=== PATIENT | male | born 1955 | race Caucasian/White ===

== ENCOUNTER 2017-01-11 23:11 | Inpatient (IN) | payer BC ==
[2017-01-11] MEDS ORDERED: MORPHINE SULFATE 10 MG/ML INJ IV ONE (23:35)
[2017-01-11] MEDS ORDERED: ONDANSETRON HCL INJ/PF 4 MG/2 ML SDV IV ONE (23:36)
[2017-01-11] MEDS ORDERED: NORMAL SALINE 1000 ML 1,000 ML IV ONE (23:38)
--- NOTE | 2017-01-11 23:38 | ER Document Report ---
ED General - General Chief Complaint: Abdominal Pain Stated Complaint: SEVERE ABDOMINAL PAIN Time seen by provider: 23:36 Notes: Patient is a 61-year-old male that comes emergency department with chief complaint of severe abdominal pain that began prior to arrival, pain is in the mid to upper abdomen, he denies nausea or vomiting, denies any radiation to his back or chest. He states he briefly had this yesterday but it resolved when he ate food, he states he tried eating but it did not help at all. He had a normal bowel movement in the past 24 hours. Past medical history of Debra-en-Y gastric bypass, hemicolectomy secondary to colon mass, appendectomy, type II diabetes insulin-dependent, hyperlipidemia. He denies any cardiac or pulmonary history. He tried taking Vicodin before coming in. TRAVEL OUTSIDE OF THE [place] IN LAST 30 DAYS: No - Related Data Allergies/Adverse Reactions: No Known Allergies Allergy (Unverified 01/11/17 23:15) Past Medical History - General Information source: Patient - Social History Smoking Status: Never Smoker Frequency of alcohol use: None Drug Abuse: None Lives with: Family Family History: Reviewed & Not Pertinent Patient has suicidal ideation: No Patient has homicidal ideation: No - Past Medical History Cardiac Medical History: Reports: Hx Hypercholesterolemia Endocrine Medical History: Reports: Hx Diabetes Mellitus Type 2 Renal/ Medical History: Denies: Hx Peritoneal Dialysis Past Surgical History: Reports: Hx Appendectomy, Hx Bowel Surgery - Debra-en-Y, partial colectomy - Immunizations Immunizations up to date: Yes Hx Diphtheria, Pertussis, Tetanus Vaccination: Yes Review of Systems - Review of Systems Constitutional: No symptoms reported EENT: No symptoms reported Cardiovascular: No symptoms reported Respiratory: No symptoms reported Gastrointestinal: See HPI Genitourinary: No symptoms reported Male Genitourinary: No symptoms reported Musculoskeletal: No symptoms reported Skin: No symptoms reported Hematologic/Lymphatic: No symptoms reported Neurological/Psychological: No symptoms reported Physical Exam - Vital signs Vitals: Temp Pulse Resp BP Pulse Ox 97.8 F 58 L 18 182/85 H 98 01/11/17 23:15 01/11/17 23:15 01/11/17 23:15 01/11/17 23:15 01/11/17 23:15 Interpretation: Normal - General General appearance: Appears well, Alert, Anxious In distress: Severe - Patient appears to be in a large amount of pain, he is pale and slightly diaphoretic - HEENT Head: Normocephalic, Atraumatic Eyes: Normal Conjunctiva: Normal Extraocular movements intact: Yes Eyelashes: Normal Pupils: PERRL Mucous membranes: Normal Pharynx: Normal Neck: Normal - Respiratory Respiratory status: No respiratory distress Chest status: Nontender Breath sounds: Normal. No: Decreased air movement, Wheezing Chest palpation: Normal - Cardiovascular Rhythm: Regular. No: Tachycardia Heart sounds: Normal auscultation, S1 appreciated, S2 appreciated Murmur: No - Abdominal Inspection: Normal Distension: No distension Bowel sounds: Normal Tenderness: Tender - Tender with guarding in the epigastric and right upper quadrant areas, lower abdomen is benign, Gregory's sign, Guarding - Back Back: Normal, Nontender. No: Tender - Extremities General upper extremity: Normal inspection, Nontender, Normal color, Normal ROM , Normal temperature General lower extremity: Normal inspection, Nontender, Normal color, Normal ROM , Normal temperature, Normal weight bearing. No: Taras's sign - Neurological Neuro grossly intact: Yes Cognition: Normal Orientation: AAOx4 [place] Coma Scale Eye Opening: Spontaneous [place] Coma Scale Verbal: Oriented [place] Coma Scale Motor: Obeys Commands Marija Coma Scale Total: 15 Speech: Normal Motor strength normal: LUE, RUE, LLE, RLE Sensory: Normal - Psychological Associated symptoms: Agitated - Skin Skin Temperature: Warm Skin Moisture: Diaphoretic Skin Color: Pale Course - Re-evaluation Re-evalutation: Patient initially pale, slightly diaphoretic, has guarding in the epigastric and right upper quadrant areas. Because he was tender acute abdominal series was performed pending labs, no free air, after morphine patient still appears very uncomfortable, given fentanyl, after this patient's pain almost completely resolved. He is much more calm and relaxed. Not hypotensive, not tachycardic. No fever. CBC unremarkable, chemistry concerning with very elevated ALT greater than AST, elevated alkaline phosphatase and both direct and indirect bilirubin. Lipase not significantly elevated. Ultrasound performed, no cholecystitis evidence, no ductal dilatation, no abnormalities. Discussed with Dr. Crum, recommends surgical consultation at this time. Discussed with surgery communications systems engineer, Dr. Sapp, recommends continuing IV fluids, recommends nothing by mouth, recommends antibiotics pending evaluation. 01/12/17 On reevaluation patient is comfortable, no current complaints 01/12/17 Patient is now again in pain, requesting pain medication, giving fentanyl because he responded to this so well earlier 01/12/17 06:45 Patient was evaluated by surgery at bedside, Dr. Sapp will admit the patient. - Vital Signs Vital signs: Temp Pulse Resp BP Pulse Ox 97.8 F 58 L 23 H 141/73 H 95 01/11/17 23:15 01/11/17 23:15 01/12/17 06:16 01/12/17 06:16 01/12/17 06:16 - Laboratory Result Diagrams: 01/11/17 23:41 01/11/17 23:41 Laboratory results interpreted by me: 01/11/17 01/11/17 01/12/17 23:41 23:41 01:50 RBC 5.69 H Seg Neutrophils % 79.0 H BUN 21 H Glucose 200 H Calcium 10.3 H Total Bilirubin 2.8 H Direct Bilirubin 0.6 H AST 747 H ALT 825 H Alkaline Phosphatase 195 H Lipase 311.6 H Urine Glucose (UA) >=500 H Urine Ketones TRACE H Discharge - Discharge Clinical Impression: Epigastric pain, Right upper quadrant pain, LFT elevation, Elevated bilirubin, Elevated alkaline phosphatase level Condition: Stable Disposition: ADMITTED INPATIENT Admitting Provider: Surgicalist Unit Admitted: Surgical Floor Referrals: LUBA LAUREN MD [Primary Care Provider] - Follow up as needed
--- NOTE | 2017-01-11 23:38 | EKG REPORT ---
SEVERITY:- ABNORMAL ECG - SINUS RHYTHM ABNRM R PROG, CONSIDER ASMI OR LEAD PLACEMENT : Confirmed by: Alvarez Green 11-Jan-2017 23:36:52
[2017-01-11 23:57] LABS: ABSOLUTE MONOCYTES (AUTO) 0.4 10^3/uL (0.1-1.4); ABSOLUTE NEUT (AUTO) 5.7 10^3/uL (1.7-8.2); BASOPHILS % (AUTO) 0.3 % (0-2); EOSINOPHILS % (AUTO) 0.4 % (0-6); HEMATOCRIT 47.9 % (37.9-51.0); HEMOGLOBIN 16.2 g/dL (13.5-17.0); HGB HCT DIFFERENCE 0.7; LYMPHOCYTES % (AUTO) 14.2 % (13-45); MEAN CORPUSCULAR HEMOGLOBIN 28.6 pg (27.0-33.4); MEAN CORPUSCULAR HGB CONC 33.9 g/dL (32.0-36.0); MEAN CORPUSCULAR VOLUME 84 fl (80-97); MONOCYTES % (AUTO) 6.1 % (3-13); RED BLOOD COUNT 5.69 10^6/uL (4.35-5.55); RED CELL DISTRIBUTION WIDTH 13.9 % (11.5-14.0); WHITE BLOOD COUNT 7.2 10^3/uL (4.0-10.5)
[2017-01-11] MEDS ORDERED: FENTANYL CITRATE INJ/PF 100 MCG/2 ML AMPUL IV ONE (23:58)
[2017-01-12 00:14] LABS: ALANINE AMINOTRANSFERASE 825 U/L (21-72); ALBUMIN 4.9 g/dL (3.5-5.0); ALKALINE PHOSPHATASE 195 U/L (38-126); ANION GAP 16 (5-19); ASPARTATE AMINO TRANSFERASE 747 U/L (17-59); BILIRUBIN,DIRECT 0.6 mg/dL (0.0-0.3); BILIRUBIN,TOTAL 2.8 mg/dL (0.2-1.3); BLOOD UREA NITROGEN 21 mg/dL (7-20); CALCIUM 10.3 mg/dL (8.4-10.2); CARBON DIOXIDE 25 mmol/L (22-30); CHLORIDE 100 mmol/L (98-107); CREATINE KINASE 96 U/L (55-170); CREATININE RESULT 1.09 mg/dL (0.52-1.25); GLUCOSE 200 mg/dL (75-110); LIPASE 311.6 U/L (23-300); POTASSIUM 4.2 mmol/L (3.6-5.0); SODIUM 140.6 mmol/L (137-145); TOTAL PROTEIN 8.1 g/dL (6.3-8.2)
[2017-01-12 00:26] LABS: CREATINE KINASE MB 0.72 ng/mL (<4.55)
[2017-01-12 00:31] LABS: TROPONIN I < 0.012 ng/mL
[2017-01-12 02:18] LABS: APPEARANCE,URINE CLEAR; BILIRUBIN,URINE NEGATIVE (NEGATIVE); GLUCOSE, URINE >=500 mg/dL (NEGATIVE); KETONES,URINE TRACE mg/dL (NEGATIVE); LEUKOCYTE ESTERASE,URINE NEGATIVE (NEGATIVE); NITRITE,URINE NEGATIVE (NEGATIVE); PROTEIN,URINE NEGATIVE (NEGATIVE); URINE SPECIFIC GRAVITY 1.024; UROBILINOGEN,URINE NEGATIVE mg/dL (<2.0)
[2017-01-12] MEDS ORDERED: NORMAL SALINE 1000 ML 1,000 ML IV PRN (02:55)
[2017-01-12] MEDS ORDERED: AMPICILLIN SOD/SULBACTAM 3 GM VIAL IV ONE (02:55)
[2017-01-12] MEDS ORDERED: FENTANYL CITRATE INJ/PF 100 MCG/2 ML AMPUL IV ONE (04:01)
[2017-01-12] MEDS ORDERED: NORMAL SALINE 1000 ML 1,000 ML IV ONE (06:41)
--- NOTE | 2017-01-12 06:55 | PDOC H&P ---
History of Present Illness Admission Date/PCP: LUBA LAUREN MD History of Present Illness: MICHELLE PANTOJA is a 61 year old male presents to the emergency department by ground rescue complaining of acute onset abdominal pain. First episode was 48 hours ago, epigastric associated with nausea but no vomiting. The symptoms improved than last night after eating a meal at 9:30, the pain returned. The location was the same.. Last bowel movement yesterday, normal. Patient denies previous episodes of. Still has his gallbladder ; he denies history of pancreatitis, hepatitis, or alcohol use. Patient was seen in the emergency department complaining of abdominal pain, and was found to be tachycardic. He received IV fluids, intravenous antibiotics and pain medication. All lateral symptoms unremarkable. Surgery was consulted, the patient was evaluated, and advised admission. Past Medical History Cardiac Medical History: Reports: Hyperlipidema Endocrine Medical History: Reports: Diabetes Mellitus Type 2 Past Surgical History Past Surgical History: Reports: Appendectomy, Gastric Bypass Surgery - Debra-en-Y , January 05, 2007, [place], [place] with successful weight loss., Other - 1. 1. Orthopedic repair left foot 1976 2. Fractures repaired with joy Social History Lives with: Family Smoking Status: Never Smoker Past Social History Note: He denies history of pancreatitis; he does not consume alcohol. Family History Family History: Reviewed & Not Pertinent Parental Family History Reviewed: Yes Children Family History Reviewed: Yes Sibling(s) Family History Reviewed.: Yes Medication/Allergy Allergies/Adverse Reactions: No Known Allergies Allergy (Unverified 01/11/17 23:15) Physical Exam Vital Signs: Temp Pulse Resp BP Pulse Ox 97.8 F 58 L 23 H 141/73 H 95 01/11/17 23:15 01/11/17 23:15 01/12/17 06:16 01/12/17 06:16 01/12/17 06:16 Intake & Output 01/10/17 01/11/17 01/12/17 06:59 06:59 06:59 Weight 105.6 kg General appearance: PRESENT: mild distress Head exam: PRESENT: normocephalic Eye exam: PRESENT: EOMI Ear exam: PRESENT: TM's normal bilaterally Teeth exam: PRESENT: other Neck exam: PRESENT: full ROM Respiratory exam: PRESENT: clear to auscultation pedro Cardiovascular exam: PRESENT: RRR, tachycardia, other Pulses: PRESENT: normal carotid pulses, normal radial pulses GI/Abdominal exam: PRESENT: diminished bowel sounds, other - Diffusely tender more so in the epigastric region, no peritoneal signs no rigidity. Rectal exam: PRESENT: deferred Extremities exam: PRESENT: other - Scars left upper extremity and left leg; decrease rotation left upper arm Neurological exam: PRESENT: oriented to person, oriented to place, oriented to time, oriented to situation Psychiatric exam: PRESENT: agitated, anxious Skin exam: PRESENT: other - Dry slightly injected Results Laboratory Results: 01/11/17 23:41 01/11/17 23:41 01/11/17 01/11/17 01/12/17 23:41 23:41 01:50 WBC 7.2 RBC 5.69 H Hgb 16.2 Hct 47.9 MCV 84 MCH 28.6 MCHC 33.9 RDW 13.9 Plt Count 193 Seg Neutrophils % 79.0 H Lymphocytes % 14.2 Monocytes % 6.1 Eosinophils % 0.4 Basophils % 0.3 Absolute Neutrophils 5.7 Absolute Lymphocytes 1.0 Absolute Monocytes 0.4 Absolute Eosinophils 0.0 Absolute Basophils 0.0 Sodium 140.6 Potassium 4.2 Chloride 100 Carbon Dioxide 25 Anion Gap 16 BUN 21 H Creatinine 1.09 Est GFR ( Amer) > 60 Est GFR (Non-Af Amer) > 60 Glucose 200 H Calcium 10.3 H Total Bilirubin 2.8 H AST 747 H ALT 825 H Alkaline Phosphatase 195 H Total Protein 8.1 Albumin 4.9 Lipase 311.6 H Urine Color YELLOW Urine Appearance CLEAR Urine pH 5.0 Ur Specific [place] 1.024 Urine Protein NEGATIVE Urine Glucose (UA) >=500 H Urine Ketones TRACE H Urine Blood NEGATIVE Urine Nitrite NEGATIVE Ur Leukocyte Esterase NEGATIVE Urine WBC (Auto) 0 Urine RBC (Auto) 0 01/11/17 01/11/17 23:41 23:41 Creatine Kinase 96 CK-MB (CK-2) 0.72 Troponin I < 0.012 Impressions: Acute Abdomen Series 01/11/17 23:35 IMPRESSION: NO RADIOGRAPHIC EVIDENCE FOR ACUTE ABDOMINAL DISEASE. Abdomen Ultrasound 01/12/17 00:52 IMPRESSION: No acute findings. Limitation. Impression: 1. acute abdominal pain, etiology undetermined, likely hepato-biliary. Cholecystitis, possible cholelithiasis in the differential; mild cryptitis 2. Status post Debra-en-Y gastric bypass procedure 3. Liver function studies 4. Diabetes mellitus, uncontrolled 5. Hypertension 6. Hyper lipidemia Plan: 1. Admit patient to surgical service, keep nothing by mouth, keep on IV fluids , repeat liver function studies 2. Continue fluid resuscitation 3. Obtain CT scan of the abdomen and pelvis with IV and oral contrast 4. Recurrent assistance of hospitalist service to manage hyperglycemia 5. May need to consult gastroenterology, Dr. rodriguez, known to the patient. Assessment & Plan - Time Time Spent: 30 to 50 Minutes - Inpatient Certification Based on my medical assessment, after consideration of the patient's comorbidities, presenting symptoms, or acuity I expect that the services needed warrant INPATIENT care.: Yes I certify that my determination is in accordance with my understanding of Medicare's requirements for reasonable and necessary INPATIENT services [42 CFR 412.3e].: Yes Medical Necessity: Need for Pain Control, Need for IV Antibiotics - Plan Summary Plan Summary: See above
[2017-01-12] MEDS ORDERED: ONDANSETRON HCL INJ/PF 4 MG/2 ML SDV IV PRN (06:57)
[2017-01-12] MEDS ORDERED: INSULIN REG, HUMAN 100 UNIT/ML 3 ML VIAL (PYX) SUBCUT PRN (06:59)
[2017-01-12] MEDS ORDERED: GLUCAGON,HUMAN RECOMB 1 MG INJ IM PRN (06:59)
[2017-01-12] MEDS ORDERED: DEXTROSE 50%-WATER 25 GM/50 ML DISP.SYRIN IV PRN ×2 (06:59)
[2017-01-12] MEDS ORDERED: DEXTROSE 40% GEL 15 GM TUBE PO PRN ×2 (06:59)
[2017-01-12] MEDS ORDERED: ACETAMINOPHEN 325 MG TABLET PO ONE (07:05)
[2017-01-12] MEDS ORDERED: KETOROLAC TROMETHAMINE INJ/PF 30 MG/1 ML SDV IV ONE (07:07)
[2017-01-12] MEDS: NORMAL SALINE 1000 ML 1,000 ML IV PRN ×2 (11:23→20:00)
[2017-01-12] MEDS: AMPICILLIN SODIUM/SULBACTAM NA 3 GM in NORMAL SALINE 100 ML IV SCH ×2 (14:13→22:40)
--- NOTE | 2017-01-12 16:04 | PDOC CONSULTATION ---
Consultation Consult Date: 01/12/17 Attending physician:: LIBAN GOMEZ Consult reason:: management diabetes History of Present Illness Admission Date/PCP: 01/12/17 06:55 LUBA LAUREN MD Patient complains of: improved abdominal pain History of Present Illness: MICHELLE PANTOJA is a 61 year old male presents to the emergency department by ground rescue complaining of acute onset abdominal pain. CT abdomen and pelvis was unremarkable except for a fatty liver Patient has been kept nothing by mouth on IV fluids. Patient clinically improved greatly with decreased abdominal pain A medical consult was called for diabetes management Past Medical History Cardiac Medical History: Reports: Hyperlipidema Endocrine Medical History: Reports: Diabetes Mellitus Type 2 Past Surgical History Past Surgical History: Reports: Appendectomy, Gastric Bypass Surgery - Debra-en-Y , January 05, 2007, [place], [place] with successful weight loss., Other - 1. 1. Orthopedic repair left foot 1976 2. Fractures repaired with joy Social History Lives with: Family Smoking Status: Never Smoker Frequency of Alcohol Use: None Hx Recreational Drug Use: No Hx Prescription Drug Abuse: No - Advance Directive Resuscitation Status: Full Code Family History Family History: Reviewed & Not Pertinent Parental Family History Reviewed: Yes Children Family History Reviewed: Yes Sibling(s) Family History Reviewed.: Yes Medication/Allergy Home Medications: Aspirin [Aspirin EC] 81 mg PO DAILY 01/12/17 Cholecalciferol (Vitamin D3) [Vitamin D3 1000 Unit Tablet] 1,000 unit PO QPM Cholecalciferol (Vitamin D3) [Vitamin D3 2000 unit Tablet] 2,000 unit PO MOTUTHSA@10 01/12/17 Cyanocobalamin (Vitamin B-12) [Vitamin B-12 1000 mcg Tablet] 1,000 mcg PO BID Cyclobenzaprine HCl [Amrix 15 mg Capsule Sustained Release] 15 mg PO QPM Dapagliflozin/Metformin HCl [Xigduo Xr 5 mg-1,000 mg Tablet] 2 each PO DAILY Ergocalciferol (Vitamin D2) [Vitamin D2] 50,000 unit PO SUWE@10 01/12/17 Fenofibrate [Lipofen] 150 mg PO QPM 01/12/17 Ferrous Sulfate [Ferrousul] 325 mg PO DAILY 01/12/17 Glimepiride [Amaryl 4 mg Tablet] 8 mg PO QPM 01/12/17 Hydrocodone/Acetaminophen [Hydrocodon-Acetaminoph 7.5-325] 1 ea PO HSP PRN 01/12 Insulin Detemir [Levemir Flextouch] 45 unit SQ DAILY 01/12/17 Coleman-3 Acid Ethyl Esters [Lovaza 1 gm Capsule] 2 gm PO BID 01/12/17 Pregabalin [Lyrica 50 Mg Capsule] 50 mg PO DAILYP PRN 01/12/17 Pregabalin [Lyrica 50 Mg Capsule] 100 mg PO QHS 01/12/17 Ramipril [Altace 5 mg Capsule] 5 mg PO QPM 01/12/17 Sildenafil Citrate [Viagra] 100 mg PO PRN PRN 01/12/17 Simvastatin [Zocor 40 mg Tablet] 40 mg PO QPM 01/12/17 Syringe W-Needle,Disposab,1 ml [Allergy Syringe] 2 each MC TH@10 01/12/17 Tramadol HCl [Ultram] 100 mg PO Q6HP PRN 01/12/17 Victoza 1.8 mcg SQ DAILY 01/12/17 Zolpidem Tartrate [Ambien Cr] 12.5 mg PO QHS 01/12/17 Allergies/Adverse Reactions: No Known Allergies Allergy (Unverified 01/11/17 23:15) Review of Systems Constitutional: ABSENT: chills, fever(s), headache(s), weight gain, weight loss Eyes: ABSENT: visual disturbances Ears: ABSENT: hearing changes Cardiovascular: ABSENT: chest pain, dyspnea on exertion, edema, orthropnea, palpitations Respiratory: ABSENT: cough, hemoptysis Gastrointestinal: PRESENT: as per HPI, abdominal pain Genitourinary: ABSENT: dysuria, hematuria Musculoskeletal: ABSENT: joint swelling Integumentary: ABSENT: rash, wounds Neurological: ABSENT: abnormal gait, abnormal speech, confusion, dizziness, focal weakness, syncope Psychiatric: ABSENT: anxiety, depression, homidical ideation, suicidal ideation Endocrine: ABSENT: cold intolerance, heat intolerance, polydipsia, polyuria Hematologic/Lymphatic: ABSENT: easy bleeding, easy bruising Physical Exam Vital Signs: Temp Pulse Resp BP Pulse Ox 98.7 F 95 19 134/77 H 95 01/12/17 10:21 01/12/17 10:21 01/12/17 10:21 01/12/17 10:21 01/12/17 10:21 Intake & Output 01/11/17 01/12/17 01/13/17 00:59 00:59 00:59 Intake Total 0 Balance 0 General appearance: PRESENT: no acute distress, obese Head exam: PRESENT: atraumatic, normocephalic Eye exam: PRESENT: conjunctiva pink, EOMI, PERRLA. ABSENT: scleral icterus Respiratory exam: PRESENT: clear to auscultation pedro. ABSENT: rales, rhonchi, wheezes Cardiovascular exam: PRESENT: RRR. ABSENT: diastolic murmur, rubs, systolic murmur GI/Abdominal exam: PRESENT: normal bowel sounds, soft. ABSENT: distended, guarding, mass, organolmegaly, rebound, tenderness Rectal exam: PRESENT: deferred Extremities exam: PRESENT: full ROM. ABSENT: calf tenderness, clubbing, pedal edema Neurological exam: PRESENT: alert, awake, oriented to person, oriented to place , oriented to time, oriented to situation, CN II-XII grossly intact. ABSENT: motor sensory deficit Skin exam: PRESENT: dry, intact, warm. ABSENT: cyanosis, rash Results Laboratory Results: 01/11/17 23:41 01/11/17 23:41 01/11/17 01/11/17 01/12/17 23:41 23:41 01:50 WBC 7.2 RBC 5.69 H Hgb 16.2 Hct 47.9 MCV 84 MCH 28.6 MCHC 33.9 RDW 13.9 Plt Count 193 Seg Neutrophils % 79.0 H Lymphocytes % 14.2 Monocytes % 6.1 Eosinophils % 0.4 Basophils % 0.3 Absolute Neutrophils 5.7 Absolute Lymphocytes 1.0 Absolute Monocytes 0.4 Absolute Eosinophils 0.0 Absolute Basophils 0.0 Sodium 140.6 Potassium 4.2 Chloride 100 Carbon Dioxide 25 Anion Gap 16 BUN 21 H Creatinine 1.09 Est GFR ( Amer) > 60 Est GFR (Non-Af Amer) > 60 Glucose 200 H Calcium 10.3 H Total Bilirubin 2.8 H AST 747 H ALT 825 H Alkaline Phosphatase 195 H Total Protein 8.1 Albumin 4.9 Lipase 311.6 H Urine Color YELLOW Urine Appearance CLEAR Urine pH 5.0 Ur Specific [place] 1.024 Urine Protein NEGATIVE Urine Glucose (UA) >=500 H Urine Ketones TRACE H Urine Blood NEGATIVE Urine Nitrite NEGATIVE Ur Leukocyte Esterase NEGATIVE Urine WBC (Auto) 0 Urine RBC (Auto) 0 01/11/17 01/11/17 23:41 23:41 Creatine Kinase 96 CK-MB (CK-2) 0.72 Troponin I < 0.012 Impressions: Acute Abdomen Series 01/11/17 23:35 IMPRESSION: NO RADIOGRAPHIC EVIDENCE FOR ACUTE ABDOMINAL DISEASE. Abdomen Ultrasound 01/12/17 00:52 IMPRESSION: No acute findings. Limitation. Abdomen/Pelvis CT 01/12/17 07:00 IMPRESSION: Markedly decreased density of the liver from fatty infiltration Intact gastric bypass Small fat containing umbilical and bilateral inguinal hernias Assessment & Plan - Diagnosis (1) Abdominal pain Is this a current diagnosis for this admission?: YesPlan: Management as per surgery (2) Diabetes mellitus, type II, insulin dependent Is this a current diagnosis for this admission?: YesPlan: We will treat the patient regular insulin sliding scale every 6 hours when necessary as patient is nothing by mouth - Time Time Spent: 30 to 50 Minutes
[2017-01-12] MEDS: MORPHINE SULFATE 10 MG/ML INJ IV PRN ×3 (17:31→23:25)
--- NOTE | 2017-01-12 17:58 | PROGRESS NOTE E ---
Progress Note NAME: MICHELLE PANTOJA : 1955 AGE: 61Y DATE: 01/12/2017 ROOM: 528 Patient was admitted yesterday because of epigastric pain. His history is significant for undergoing a gastric bypass and a laparoscopic right hemicolectomy. The pain was present a day before for a short time but became more intense last night and therefore he came into the emergency room to be evaluated. He had abdominal ultrasound which was normal. He had elevated liver function tests with a total bilirubin of 2.8, direct bilirubin 0.8, AST 747, alkaline phosphatase of 195, and ALT of 825. His lipase was 311. SUBJECTIVE: Patient has only minimal discomfort at the current time. Pain had been located in the epigastric region radiating to his back. OBJECTIVE: Patient's abdomen was soft, nontender. DIAGNOSTIC DATA: CT scan of the abdomen and pelvis showed a fatty liver. There does not appear any evidence of pancreatitis, bowel obstruction, or cholecystitis. ASSESSMENT: 1. EPIGASTRIC PAIN RADIATING TO HIS BACK WITH ELEVATED LIVER FUNCTION TESTS AND LIPASE. More than likely, his pain is related to mild pancreatitis of unknown etiology. There does not appear to be any gallstones on ultrasound, however, biliary tree as a cause is still a possibility although less likely. He had diabetes with elevated glucose and this is also a possibility. I would recommend bowel rest at the current time in talking with Dr. Almaraz from Gastroenterology. He recommended MRCP to rule out any possible stone in the common bile duct as a cause of the elevated lipase or liver function tests. 2. ELEVATED LIVER FUNCTION TESTS. This could be related to pancreatitis in the head causing obstruction verses common bile duct stone although he has no gallstones, or related to fatty liver and medication. We will obtain an MRCP to rule out common bile duct stone. 3. DIABETES. Followed by Medicine. PLAN: 1. Obtain MRCP. 2. Bowel rest. 3. Prophylactic antibiotics as he did have a fever overnight with normal white blood cell count. 4. Follow lipase and liver function tests. DICTATING PHYSICIAN: DARRIUS ROSALES M.D. [id number] PHY#: [id number] ID: [id number] JOB#: [id number] ACCT: [id number] cc: > MTDD
--- NOTE | 2017-01-12 18:10 | PDOC CONSULTATION ---
Consultation Consult Date: 01/12/17 History of Present Illness Admission Date/PCP: 01/12/17 06:55 LUBA LAUREN MD History of Present Illness: This is a 61-year-old patient admitted through the emergency room with recurrent abdominal pain. He was in her normal state of health on 22 nights ago when he suddenly developed epigastric pain radiating to his back. The pain was mild and was not associated with nausea or vomiting. It lasted for about an hour and a half. He was fine for the following 24 hours until last night when the pain returned. This time it was more severe and lasted for about 3-4 hours. Again there was no vomiting or diarrhea. He is pain-free at the moment. On presentation to the emergency room his lipase was slightly elevated at 311 but his bilirubin was 2.8, AST 747, AST 825, and alkaline phosphatase of 195. An ultrasound of his abdomen showed no gallstones and no dilated biliary ducts. A CAT scan of the abdomen showed evidence of severe fatty liver and gastric bypass. There was no acute changes. He is scheduled for an MRCP tonight. Patient has a history of colon cancer diagnosed in 2014 followed by right hemicolectomy. I did a colonoscopy on him in July 2016 that showed sigmoid diverticulosis and hemorrhoids. Past Medical History Cardiac Medical History: Reports: Hyperlipidema Endocrine Medical History: Reports: Diabetes Mellitus Type 2 Malignancy History Note: Colon cancer GI History Note: Diverticulosis, hemorrhoids, Past Surgical History Past Surgical History: Colonoscopy in December 2014 and July 2016 Past Surgical History: Reports: Appendectomy, Gastric Bypass Surgery - [facility] , January 05, 2007, [place], [place] with successful weight loss., Other - 1. 1. Orthopedic repair left foot 1976 2. Fractures repaired with joy Social History Lives with: Family Smoking Status: Never Smoker Frequency of Alcohol Use: None Hx Recreational Drug Use: No Hx Prescription Drug Abuse: No - Advance Directive Resuscitation Status: Full Code Family History Family History: Reviewed & Not Pertinent Parental Family History Reviewed: No Children Family History Reviewed: NA Sibling(s) Family History Reviewed.: NA Medication/Allergy Home Medications: Aspirin [Aspirin EC] 81 mg PO DAILY 01/12/17 Cholecalciferol (Vitamin D3) [Vitamin D3 1000 Unit Tablet] 1,000 unit PO QPM Cholecalciferol (Vitamin D3) [Vitamin D3 2000 unit Tablet] 2,000 unit PO MOTUTHSA@10 01/12/17 Cyanocobalamin (Vitamin B-12) [Vitamin B-12 1000 mcg Tablet] 1,000 mcg PO BID Cyclobenzaprine HCl [Amrix 15 mg Capsule Sustained Release] 15 mg PO QPM Dapagliflozin/Metformin HCl [Xigduo Xr 5 mg-1,000 mg Tablet] 2 each PO DAILY Ergocalciferol (Vitamin D2) [Vitamin D2] 50,000 unit PO SUWE@10 01/12/17 Fenofibrate [Lipofen] 150 mg PO QPM 01/12/17 Ferrous Sulfate [Ferrousul] 325 mg PO DAILY 01/12/17 Glimepiride [Amaryl 4 mg Tablet] 8 mg PO QPM 01/12/17 Hydrocodone/Acetaminophen [Hydrocodon-Acetaminoph 7.5-325] 1 ea PO HSP PRN 01/12 Insulin Detemir [Levemir Flextouch] 45 unit SQ DAILY 01/12/17 [place]-3 Acid Ethyl Esters [Lovaza 1 gm Capsule] 2 gm PO BID 01/12/17 Pregabalin [Lyrica 50 Mg Capsule] 50 mg PO DAILYP PRN 01/12/17 Pregabalin [Lyrica 50 Mg Capsule] 100 mg PO QHS 01/12/17 Ramipril [Altace 5 mg Capsule] 5 mg PO QPM 01/12/17 Sildenafil Citrate [Viagra] 100 mg PO PRN PRN 01/12/17 Simvastatin [Zocor 40 mg Tablet] 40 mg PO QPM 01/12/17 Syringe W-Needle,Disposab,1 ml [Allergy Syringe] 2 each [facility]@10 01/12/17 Tramadol HCl [Ultram] 100 mg PO Q6HP PRN 01/12/17 Victoza 1.8 mcg SQ DAILY 01/12/17 Zolpidem Tartrate [Ambien Cr] 12.5 mg PO QHS 01/12/17 Allergies/Adverse Reactions: No Known Allergies Allergy (Unverified 01/11/17 23:15) Review of Systems All systems: reviewed and no additional remarkable complaints except as stated Physical Exam Vital Signs: Temp Pulse Resp BP Pulse Ox 98.7 F 65 17 149/84 H 99 01/12/17 15:49 01/12/17 15:49 01/12/17 15:49 01/12/17 15:49 01/12/17 15:49 Intake & Output 01/11/17 01/12/17 01/13/17 06:59 06:59 06:59 Intake Total 0 Balance 0 Exam: General: Patient is alert and looks well. HEENT: There is no pallor or jaundice. PERRLA. Oropharynx normal Respiratory: No chest deformity. No respiratory distress. Chest wall palpitation was unremarkable. Breath sounds were normal Cardiovascular: Heart sounds 1 and 2 normal with no murmurs. Abdominal: Not distended. Soft and nontender. Liver and spleen not palpable. No ascites demonstrated. Bowel sounds active. Rectal examination was deferred. Extremities: No edema Neurological: Alert and oriented x4. Grossly nonfocal. Normal speech Skin: No significant rash Psychological: Normal affect Results Impressions: Acute Abdomen Series 01/11/17 23:35 IMPRESSION: NO RADIOGRAPHIC EVIDENCE FOR ACUTE ABDOMINAL DISEASE. Abdomen Ultrasound 01/12/17 00:52 IMPRESSION: No acute findings. Limitation. Abdomen/Pelvis CT 01/12/17 07:00 IMPRESSION: Markedly decreased density of the liver from fatty infiltration Intact gastric bypass Small fat containing umbilical and bilateral inguinal hernias Assessment & Plan - Diagnosis (1) Biliary tract disorder Is this a current diagnosis for this admission?: YesPlan: I suspect his recurrent epigastric pain associated with elevated LFTs is from choledocholithiasis. I'm not sure if his LFTs were normal in the past. He had a blood work at his [facility] about two weeks ago and we will try and get a copy of this. If his MRCP is abnormal he should be referred to [place] or [place] for an enteroscopy assisted ERCP or gastrostomy with percutaneous ERCP. If his MRCP is normal we will continue with conservative management and slowly advance his diet. I will follow him in the office. (2) Elevated LFTs Is this a current diagnosis for this admission?: YesPlan: This will be followed up as outpatient (3) Epigastric pain Is this a current diagnosis for this admission?: Yes (4) Fatty liver Is this a current diagnosis for this admission?: YesPlan: He is determined to go on a diet
[2017-01-13] MEDS: MORPHINE SULFATE 10 MG/ML INJ IV PRN ×3 (02:30→11:25)
[2017-01-13] MEDS: NORMAL SALINE 1000 ML 1,000 ML IV PRN (05:46)
[2017-01-13] MEDS: AMPICILLIN SODIUM/SULBACTAM NA 3 GM in NORMAL SALINE 100 ML IV SCH ×2 (05:46→15:14)
[2017-01-13 06:42] LABS: ABSOLUTE EOSINOPHILS # (AUTO) 0.2 10^3/uL (0.0-0.6); ABSOLUTE MONOCYTES (AUTO) 0.7 10^3/uL (0.1-1.4); ABSOLUTE NEUT (AUTO) 3.8 10^3/uL (1.7-8.2); BASOPHILS % (AUTO) 0.4 % (0-2); EOSINOPHILS % (AUTO) 3.3 % (0-6); HEMATOCRIT 40.1 % (37.9-51.0); HGB HCT DIFFERENCE 0.1; MEAN CORPUSCULAR HEMOGLOBIN 28.2 pg (27.0-33.4); MEAN CORPUSCULAR HGB CONC 33.5 g/dL (32.0-36.0); MEAN CORPUSCULAR VOLUME 84 fl (80-97); MONOCYTES % (AUTO) 11.9 % (3-13); RED BLOOD COUNT 4.76 10^6/uL (4.35-5.55); RED CELL DISTRIBUTION WIDTH 13.7 % (11.5-14.0); SEGMENTED NEUTROPHILS % (AUTO) 66.4 % (42-78); WHITE BLOOD COUNT 5.7 10^3/uL (4.0-10.5)
[2017-01-13 06:56] LABS: ALANINE AMINOTRANSFERASE 631 U/L (21-72); ALBUMIN 3.3 g/dL (3.5-5.0); ALKALINE PHOSPHATASE 167 U/L (38-126); AMYLASE 69 U/L (30-110); ANION GAP 11 (5-19); ASPARTATE AMINO TRANSFERASE 476 U/L (17-59); BILIRUBIN,DIRECT 2.4 mg/dL (0.0-0.3); BILIRUBIN,TOTAL 5.2 mg/dL (0.2-1.3); BLOOD UREA NITROGEN 13 mg/dL (7-20); CALCIUM 8.5 mg/dL (8.4-10.2); CARBON DIOXIDE 22 mmol/L (22-30); CHLORIDE 107 mmol/L (98-107); GLUCOSE 84 mg/dL (75-110); LIPASE 255.5 U/L (23-300); POTASSIUM 4.5 mmol/L (3.6-5.0); SODIUM 139.7 mmol/L (137-145); TOTAL PROTEIN 5.8 g/dL (6.3-8.2)
[2017-01-13 07:06] LABS: HEMOGLOBIN 13.4 g/dL (13.5-17.0)
[2017-01-13] MEDS ORDERED: DEXTROSE 5%-NORMAL SALINE 1,000 ML IV PRN (09:16)
[2017-01-13] MEDS ORDERED: TRAMADOL HCL 50 MG TABLET PO PRN (09:18)
[2017-01-13] MEDS ORDERED: PREGABALIN 50 MG CAPSULE PO PRN (09:18)
[2017-01-13] MEDS ORDERED: CHOLECALCIFEROL (D3) 1,000 UNIT TABLET PO SCH (10:00)
[2017-01-13] MEDS ORDERED: ERGOCALCIFEROL (VITAMIN D2) 50000 UNIT (1.25 MG) CAPSULE PO SCH (10:00)
[2017-01-13] MEDS: OMEGA-3 ACID ETHYL ESTERS 1 GM CAPSULE PO SCH ×2 (12:58→22:43)
[2017-01-13] MEDS: KETOROLAC TROMETHAMINE INJ/PF 30 MG/1 ML SDV IV SCH ×3 (12:58→23:30)
[2017-01-13] MEDS: FERROUS SULFATE 325 MG TABLET PO SCH (12:59)
[2017-01-13] MEDS: CYANOCOBALAMIN (VITAMIN B-12) 1,000 MCG TABLET PO SCH ×2 (12:59→22:43)
[2017-01-13] MEDS ORDERED: HYDROCODONE/ACETAMINOPHEN 5-325 MG TABLET PO PRN (15:48)
--- NOTE | 2017-01-13 16:08 | PROGRESS NOTE E ---
Progress Note NAME: MICHELLE PANTOJA : 1955 AGE: 61Y DATE: 01/13/2017 ROOM: 528 SUBJECTIVE: The patient presents with epigastric pain along with elevated lipase and liver function tests. Ultrasound shows a thickened gallbladder wall with some fluid of unknown significance as he does not have any gallstones. The patient denies any abdominal pain at the current time. The patient's urine is now dark colored. OBJECTIVE: VITAL SIGNS: Blood pressure 130/73, temperature is 98.9, pulse is 62, respirations 20. GENERAL: The patient is lying in bed. He is cooperative and not in any distress at the current time. Eyes are icteric. ABDOMEN: Soft, nontender. DIAGNOSTIC DATA: White blood cell count 5.7. Lipase 255, total bilirubin 5.2, direct 2.4, AST 476, ALT 631, alk phos 167. MRI does not show any filling defects in the biliary tree. He does have some edema in the gallbladder bed. ASSESSMENT: 1. EPIGASTRIC PAIN, RESOLVED AT THE CURRENT TIME WITH ELEVATED LIPASE AND SYMPTOMS COMPATIBLE WITH PANCREATITIS, RESOLVED AT THE CURRENT TIME. Unknown etiology but certainly elevated blood sugars versus biliary tract disease are a possibility, although he does not have any gallstones currently visualized on imaging studies. We will continue to follow at the current time. 2. EDEMA IN THE GALLBLADDER BED OF UNKNOWN SIGNIFICANCE ON MRI. He also is now having elevated liver function tests. I would recommend hepatobiliary scan to rule out acalculous cholecystitis. 3. ELEVATED LIVER FUNCTION TESTS OF UNKNOWN ETIOLOGY. There does not appear to be any filling defects in the biliary tree. This could be medication induced. We will see what the hepatobiliary scan shows and whether there is any obstruction being present. PLAN: Hepatobiliary scan. DICTATING PHYSICIAN: DARRIUS ROSALES M.D. [id number] PHY#: [id number] ID: [id number] JOB#: [id number] ACCT: [id number] cc: >
[2017-01-13] MEDS ORDERED: CYCLOBENZAPRINE HCL 15 MG PO SCH (18:00)
--- NOTE | 2017-01-13 18:31 | PDOC PROGRESS REPORT ---
Subjective Progress Note for:: 01/13/17 Subjective:: Patient is quite stable Minimal pain His LFTs were more elevated; an MRI was suggestive of an acute cholecystitis He will undergo a gallbladder scan today IV fluid was switched to D5 and normal saline has his blood sugars were running low Physical Exam Vital Signs: Temp Pulse Resp BP Pulse Ox 98.9 F 62 20 130/73 H 96 01/13/17 11:35 01/13/17 11:35 01/13/17 11:35 01/13/17 11:35 01/13/17 11:35 Intake & Output 01/12/17 01/13/17 01/14/17 00:59 00:59 00:59 Intake Total 467 1187 Balance 467 1187 Weight 105.6 kg General appearance: PRESENT: no acute distress, morbidly obese, well-developed, well-nourished Head exam: PRESENT: atraumatic, normocephalic Eye exam: PRESENT: conjunctiva pink, EOMI, PERRLA. ABSENT: scleral icterus Ear exam: PRESENT: normal external ear exam Mouth exam: PRESENT: moist, tongue midline Neck exam: ABSENT: carotid bruit, JVD, lymphadenopathy, thyromegaly Respiratory exam: PRESENT: clear to auscultation pedro. ABSENT: rales, rhonchi, wheezes Cardiovascular exam: PRESENT: RRR. ABSENT: diastolic murmur, rubs, systolic murmur Pulses: PRESENT: normal dorsalis pedis pul Vascular exam: PRESENT: normal capillary refill GI/Abdominal exam: PRESENT: normal bowel sounds, soft. ABSENT: distended, guarding, mass, organolmegaly, rebound, tenderness Rectal exam: PRESENT: deferred Extremities exam: PRESENT: full ROM. ABSENT: calf tenderness, clubbing, pedal edema Neurological exam: PRESENT: alert, awake, oriented to person, oriented to place , oriented to time, oriented to situation, CN II-XII grossly intact. ABSENT: motor sensory deficit Psychiatric exam: PRESENT: appropriate affect, normal mood. ABSENT: homicidal ideation, suicidal ideation Skin exam: PRESENT: dry, intact, warm. ABSENT: cyanosis, rash Results Laboratory Results: 01/13/17 05:53 01/13/17 05:53 01/13/17 01/13/17 05:53 05:53 WBC 5.7 RBC 4.76 Hgb 13.4 L D Hct 40.1 MCV 84 MCH 28.2 MCHC 33.5 RDW 13.7 Plt Count 154 Seg Neutrophils % 66.4 Lymphocytes % 18.0 Monocytes % 11.9 Eosinophils % 3.3 Basophils % 0.4 Absolute Neutrophils 3.8 Absolute Lymphocytes 1.0 Absolute Monocytes 0.7 Absolute Eosinophils 0.2 Absolute Basophils 0.0 Sodium 139.7 Potassium 4.5 Chloride 107 Carbon Dioxide 22 Anion Gap 11 BUN 13 Creatinine 1.00 Est GFR ( Amer) > 60 Est GFR (Non-Af Amer) > 60 Glucose 84 Calcium 8.5 Total Bilirubin 5.2 H AST 476 H ALT 631 H Alkaline Phosphatase 167 H Total Protein 5.8 L Albumin 3.3 L Amylase 69 Lipase 255.5 Impressions: Acute Abdomen Series 01/11/17 23:35 IMPRESSION: NO RADIOGRAPHIC EVIDENCE FOR ACUTE ABDOMINAL DISEASE. Abdomen MRI 01/12/17 00:00 IMPRESSION: 1. APPARENT EDEMA OF THE GALLBLADDER WALL WITH PERICHOLECYSTIC FLUID. FINDINGS COULD BE INDICATIVE OF ACALCULOUS CHOLECYSTITIS. IF THERE IS CLINICAL SUSPICION , THEN HEPATOBILIARY SCAN MAY BE INDICATED. 2. UNREMARKABLE MRCP. NO BILIARY DILATION OR INTRALUMINAL FILLING DEFECTS. Abdomen Ultrasound 01/12/17 00:52 IMPRESSION: No acute findings. Limitation. Abdomen/Pelvis CT 01/12/17 07:00 IMPRESSION: Markedly decreased density of the liver from fatty infiltration Intact gastric bypass Small fat containing umbilical and bilateral inguinal hernias Assessment & Plan - Diagnosis (1) Diabetes mellitus, type II, insulin dependent Is this a current diagnosis for this admission?: YesPlan: Continue present management (2) Elevated LFTs Is this a current diagnosis for this admission?: YesPlan: Workup in progress Hydascan to be performed tonight (3) Abdominal pain Qualifiers: Abdominal location: upper abdomen, unspecified Qualified Code(s): R10.10 - Upper abdominal pain, unspecified Is this a current diagnosis for this admission?: Yes (4) Hyperlipidemia Qualifiers: Hyperlipidemia type: unspecified Qualified Code(s): E78.5 - Hyperlipidemia, unspecified Is this a current diagnosis for this admission?: YesPlan: Lipitor on hold - Time Time Spent with patient: 15-24 minutes
[2017-01-13] MEDS ORDERED: ZOLPIDEM TARTRATE 5 MG TABLET PO PRN (20:52)
[2017-01-13] MEDS: ZOLPIDEM TARTRATE 5 MG TABLET PO SCH (22:43)
[2017-01-13] MEDS: PREGABALIN 50 MG CAPSULE PO SCH (22:43)
[2017-01-14] MEDS ORDERED: HYDROMORPHONE HCL INJ/PF 2 MG/ML AMPULE ONE (02:13)
[2017-01-14] MEDS ORDERED: HYDROMORPHONE HCL INJ/PF 2 MG/ML AMPULE IV PRN (02:15)
[2017-01-14] MEDS: KETOROLAC TROMETHAMINE INJ/PF 30 MG/1 ML SDV IV SCH (06:00)
[2017-01-14 07:27] LABS: ALANINE AMINOTRANSFERASE 479 U/L (21-72); ALBUMIN 3.6 g/dL (3.5-5.0); ALKALINE PHOSPHATASE 181 U/L (38-126); ANION GAP 15 (5-19); ASPARTATE AMINO TRANSFERASE 255 U/L (17-59); BILIRUBIN,DIRECT 2.1 mg/dL (0.0-0.3); BILIRUBIN,TOTAL 4.9 mg/dL (0.2-1.3); BLOOD UREA NITROGEN 14 mg/dL (7-20); CALCIUM 9.2 mg/dL (8.4-10.2); CARBON DIOXIDE 21 mmol/L (22-30); CHLORIDE 104 mmol/L (98-107); CREATININE RESULT 0.91 mg/dL (0.52-1.25); GLUCOSE 154 mg/dL (75-110); LIPASE 182.1 U/L (23-300); SODIUM 140.1 mmol/L (137-145); TOTAL PROTEIN 6.4 g/dL (6.3-8.2)
[2017-01-14] MEDS: HYDROMORPHONE HCL INJ/PF 2 MG/ML AMPULE IV PRN ×2 (09:28→20:49)
[2017-01-14 10:17] LABS: ABSOLUTE LYMPHOCYTES (AUTO) 0.6 10^3/uL (0.5-4.7); ABSOLUTE MONOCYTES (AUTO) 0.8 10^3/uL (0.1-1.4); BASOPHILS % (AUTO) 0.3 % (0-2); EOSINOPHILS % (AUTO) 0.4 % (0-6); HEMOGLOBIN 14.1 g/dL (13.5-17.0); HGB HCT DIFFERENCE -0.7; LYMPHOCYTES % (AUTO) 7.7 % (13-45); MEAN CORPUSCULAR HEMOGLOBIN 27.8 pg (27.0-33.4); MEAN CORPUSCULAR HGB CONC 32.9 g/dL (32.0-36.0); MEAN CORPUSCULAR VOLUME 85 fl (80-97); MONOCYTES % (AUTO) 9.3 % (3-13); RED BLOOD COUNT 5.08 10^6/uL (4.35-5.55); RED CELL DISTRIBUTION WIDTH 14.3 % (11.5-14.0); SEGMENTED NEUTROPHILS % (AUTO) 82.3 % (42-78); WHITE BLOOD COUNT 8.5 10^3/uL (4.0-10.5)
[2017-01-14] MEDS ORDERED: NORMAL SALINE 1000 ML 1,000 ML IV ONE (10:35)
[2017-01-14] MEDS ORDERED: ACETAMINOPHEN 325 MG TABLET PO ONE (10:53)
[2017-01-14] MEDS ORDERED: KETOROLAC TROMETHAMINE INJ/PF 30 MG/1 ML SDV IV PRN (10:54)
[2017-01-14] MEDS ORDERED: OXYCODONE HCL IR 5 MG TABLET PO PRN (10:59)
--- NOTE | 2017-01-14 11:12 | PDOC PROGRESS REPORT ---
Subjective Progress Note for:: 01/14/17 Subjective:: Fever and early sepsis patient has a temp over 102 feels very warm no shortness of breath no chest pain abdominal pain remains about 5/10 No nausea or vomiting Workup for abnormal liver function test is not conclusive of an acute cholecystitis Patient had blood cultures fluid bolus was given And broad-spectrum antibiotics with Zosyn and vancomycin were initiated Review of patient's meds; Tylenol was discontinued Patient will be on oxycodone every 4 hours for pain Physical Exam Vital Signs: Temp Pulse Resp BP Pulse Ox 101.2 F H 90 28 H 153/85 H 96 01/14/17 10:27 01/14/17 10:27 01/14/17 09:15 01/14/17 09:15 01/14/17 10:27 Intake & Output 01/13/17 01/14/17 01/15/17 00:59 00:59 00:59 Intake Total 467 2387 310 Balance 467 2387 310 Weight 105.6 kg 105.6 kg General appearance: PRESENT: mild distress Head exam: PRESENT: atraumatic, normocephalic Eye exam: PRESENT: conjunctiva pale Neck exam: ABSENT: carotid bruit, JVD, lymphadenopathy, thyromegaly Respiratory exam: PRESENT: clear to auscultation pedro. ABSENT: rales, rhonchi, wheezes GI/Abdominal exam: PRESENT: normal bowel sounds, soft. ABSENT: distended, guarding, mass, organolmegaly, rebound, tenderness Neurological exam: PRESENT: alert, awake, oriented to person, oriented to place , oriented to time, oriented to situation, CN II-XII grossly intact. ABSENT: motor sensory deficit Results Laboratory Results: 01/14/17 09:56 01/14/17 06:10 01/14/17 01/14/17 06:10 09:56 WBC 8.5 RBC 5.08 Hgb 14.1 Hct 43.0 MCV 85 MCH 27.8 MCHC 32.9 RDW 14.3 H Plt Count 183 Seg Neutrophils % 82.3 H Lymphocytes % 7.7 L Monocytes % 9.3 Eosinophils % 0.4 Basophils % 0.3 Absolute Neutrophils 7.0 Absolute Lymphocytes 0.6 Absolute Monocytes 0.8 Absolute Eosinophils 0.0 Absolute Basophils 0.0 Sodium 140.1 Potassium 5.0 Chloride 104 Carbon Dioxide 21 L Anion Gap 15 BUN 14 Creatinine 0.91 Est GFR ( Amer) > 60 Est GFR (Non-Af Amer) > 60 Glucose 154 H Calcium 9.2 Total Bilirubin 4.9 H AST 255 H ALT 479 H Alkaline Phosphatase 181 H Total Protein 6.4 Albumin 3.6 Lipase 182.1 Impressions: Acute Abdomen Series 01/11/17 23:35 IMPRESSION: NO RADIOGRAPHIC EVIDENCE FOR ACUTE ABDOMINAL DISEASE. Abdomen MRI 01/12/17 00:00 IMPRESSION: 1. APPARENT EDEMA OF THE GALLBLADDER WALL WITH PERICHOLECYSTIC FLUID. FINDINGS COULD BE INDICATIVE OF ACALCULOUS CHOLECYSTITIS. IF THERE IS CLINICAL SUSPICION , THEN HEPATOBILIARY SCAN MAY BE INDICATED. 2. UNREMARKABLE MRCP. NO BILIARY DILATION OR INTRALUMINAL FILLING DEFECTS. Abdomen Ultrasound 01/12/17 00:52 IMPRESSION: No acute findings. Limitation. Abdomen/Pelvis CT 01/12/17 07:00 IMPRESSION: Markedly decreased density of the liver from fatty infiltration Intact gastric bypass Small fat containing umbilical and bilateral inguinal hernias Hepatobiliary Scan [facility] 01/13/17 00:00 IMPRESSION: LOW GALLBLADDER EJECTION FRACTION. EVIDENCE FOR BILIARY DYSKINESIS. NO CYSTIC OR COMMON DUCT OBSTRUCTION. Assessment & Plan - Diagnosis (1) Diabetes mellitus, type II, insulin dependent Is this a current diagnosis for this admission?: Yes (2) Elevated LFTs Is this a current diagnosis for this admission?: YesPlan: Etiology at this time is unclear Patient does have a fatty liver and chronic liver insufficiency we will obtain a Tylenol level (3) Abdominal pain Qualifiers: Abdominal location: upper abdomen, unspecified Qualified Code(s): R10.10 - Upper abdominal pain, unspecified Is this a current diagnosis for this admission?: Yes (4) Hyperlipidemia Qualifiers: Hyperlipidemia type: unspecified Qualified Code(s): E78.5 - Hyperlipidemia, unspecified Is this a current diagnosis for this admission?: Yes (5) Sepsis Qualifiers: Sepsis type: sepsis due to unspecified organism Qualified Code(s): A41.9 - Sepsis, unspecified organism Is this a current diagnosis for this admission?: YesPlan: Most likely biliary sepsis Blood cultures were drawn Initiated broad-spectrum coverage with Zosyn and vancomycin - Time Time Spent with patient: Patient likely would be transferred to a tertiary center today for further evaluation, and ERCP in if indicated Time Spent with patient: 25-34 minutes
[2017-01-14] MEDS: NORMAL SALINE 1000 ML 1,000 ML IV PRN ×2 (11:13→20:12)
[2017-01-14] MEDS ORDERED: VANCOMYCIN HCL 0 MG in DEXTROSE 5%-WATER 250 ML IV NR (11:15)
[2017-01-14] MEDS ORDERED: GENTAMICIN SULFATE 100 MG in DEXTROSE 5%-WATER 100.0 ML IV ONE (12:00)
[2017-01-14] MEDS: PIPERACILLIN SODIUM/TAZOBACTAM 3.375 GM in NORMAL SALINE 100 ML IV SCH ×2 (12:22→17:14)
[2017-01-14 12:52] LABS: PROTHROMBIN TIME 13.9 SEC (11.4-15.4)
[2017-01-14 12:53] LABS: PARTIAL THROMBOPLASTIN TIME 31.5 SEC (23.5-35.8)
[2017-01-14] MEDS ORDERED: VANCOMYCIN HCL 1,500 MG in DEXTROSE 5%-WATER 250 ML IV ONE (13:00)
[2017-01-14] MEDS: CYCLOBENZAPRINE HCL 10 MG TABLET PO SCH ×2 (13:23→22:03)
[2017-01-14] MEDS: CYANOCOBALAMIN (VITAMIN B-12) 1,000 MCG TABLET PO SCH ×2 (13:25→21:32)
[2017-01-14] MEDS: FERROUS SULFATE 325 MG TABLET PO SCH (13:25)
[2017-01-14] MEDS: OMEGA-3 ACID ETHYL ESTERS 1 GM CAPSULE PO SCH ×2 (13:25→21:32)
--- NOTE | 2017-01-14 16:17 | PDOC TRANSFER SUMMARY ---
General Admission Date/PCP: 01/12/17 06:55 LUBA LAUREN MD Resuscitation Status: Full Code - Transfer Diagnosis (1) Diabetes mellitus, type II, insulin dependent Is this a current diagnosis for this admission?: Yes (2) Elevated LFTs Is this a current diagnosis for this admission?: Yes (3) Abdominal pain Is this a current diagnosis for this admission?: Yes (4) Hyperlipidemia Is this a current diagnosis for this admission?: Yes (5) Sepsis Is this a current diagnosis for this admission?: Yes (6) Fatty liver Is this a current diagnosis for this admission?: Yes - Transfer Medications Home Medications: Aspirin [Aspirin EC] 81 mg PO DAILY 01/12/17 Cholecalciferol (Vitamin D3) [Vitamin D3 1000 Unit Tablet] 1,000 unit PO QPM Cholecalciferol (Vitamin D3) [Vitamin D3 2000 unit Tablet] 2,000 unit PO MOTUTHSA@10 01/12/17 Cyanocobalamin (Vitamin B-12) [Vitamin B-12 1000 mcg Tablet] 1,000 mcg PO BID Cyclobenzaprine HCl [Amrix 15 mg Capsule Sustained Release] 15 mg PO QPM Dapagliflozin/Metformin HCl [Xigduo Xr 5 mg-1,000 mg Tablet] 2 each PO DAILY Ergocalciferol (Vitamin D2) [Vitamin D2] 50,000 unit PO SUWE@10 01/12/17 Fenofibrate [Lipofen] 150 mg PO QPM 01/12/17 Ferrous Sulfate [Ferrousul] 325 mg PO DAILY 01/12/17 Glimepiride [Amaryl 4 mg Tablet] 8 mg PO QPM 01/12/17 Hydrocodone/Acetaminophen [Hydrocodon-Acetaminoph 7.5-325] 1 ea PO HSP PRN 01/12 Insulin Detemir [Levemir Flextouch] 45 unit SQ DAILY 01/12/17 Rico-3 Acid Ethyl Esters [Lovaza 1 gm Capsule] 2 gm PO BID 01/12/17 Pregabalin [Lyrica 50 Mg Capsule] 50 mg PO DAILYP PRN 01/12/17 Pregabalin [Lyrica 50 Mg Capsule] 100 mg PO QHS 01/12/17 Ramipril [Altace 5 mg Capsule] 5 mg PO QPM 01/12/17 Sildenafil Citrate [Viagra] 100 mg PO PRN PRN 01/12/17 Simvastatin [Zocor 40 mg Tablet] 40 mg PO QPM 01/12/17 Syringe W-Needle,Disposab,1 ml [Allergy Syringe] 2 each MC TH@10 01/12/17 Tramadol HCl [Ultram] 100 mg PO Q6HP PRN 01/12/17 Victoza 1.8 mcg SQ DAILY 01/12/17 Zolpidem Tartrate [Ambien Cr] 12.5 mg PO QHS 01/12/17 Transfer Medications: Current Medications Cholecalciferol (Vitamin D3 1000 Unit Tablet) 2,000 unit PO MoTuThSa@1000 [facility] Stop: 02/12/17 09:59 Last Admin: 01/14/17 13:25 Dose: Not Given Cyanocobalamin (Vitamin B-12 1000 Mcg Tablet) 1,000 mcg PO BID [facility] Stop: 02/12/17 09:59 Last Admin: 01/14/17 13:25 Dose: Not Given Cyclobenzaprine HCl (Flexeril 10 Mg Tablet) 5 mg PO Q8 [facility] Stop: 02/13/17 13:59 Last Admin: 01/14/17 13:23 Dose: 5 mg Dextrose (Dextrose Inj 50% Syringe (25 Gm/50 Ml)) 12.5 gm IV PRN PRN; Protocol PRN Reason: FOR BG 50-69 IN ALERT PATIENT Stop: 02/11/17 06:58 Dextrose (Dextrose Inj 50% Syringe (25 Gm/50 Ml)) 25 gm IV PRN PRN PRN Reason: Protocol Stop: 02/11/17 06:58 Ergocalciferol (Drisdol 50,000 Unit (1.25mg) Capsule) 50,000 unit PO SUWE@10 [facility] Stop: 02/12/17 09:59 Last Admin: 01/13/17 13:07 Dose: 50,000 unit Ferrous Sulfate (Feosol 325 Mg Tablet) 325 mg PO DAILY [facility] Stop: 02/12/17 09:59 Last Admin: 01/14/17 13:25 Dose: Not Given Glucagon (Glucagen Inj 1 Mg Vial) 1 mg IM PRN PRN; Protocol PRN Reason: Evaluate for BG < 70 Stop: 02/11/17 06:58 Glucose (Glutose 40% Gel 15 Gm Tube) 30 gm PO PRN PRN; Protocol PRN Reason: FOR BG < 50 IN ALERT PATIENT Stop: 02/11/17 06:58 Glucose (Glutose 40% Gel 15 Gm Tube) 15 gm PO PRN PRN; Protocol PRN Reason: FOR BG 50-69 IN ALERT PATIENT Stop: 02/11/17 06:58 Hydromorphone HCl (Dilaudid Inj/Pf 2 Mg/Ml Ampule) 1 mg IV Q2HP PRN PRN Reason: FOR PAIN SCALE 2-3 Stop: 01/21/17 02:14 Last Admin: 01/14/17 15:47 Dose: 1 mg Hydromorphone HCl (Dilaudid Inj/Pf 2 Mg/Ml Ampule) 2 mg IV Q2HP PRN PRN Reason: FOR PAIN SCALE 4-5 Stop: 01/21/17 02:15 Last Admin: 01/14/17 09:28 Dose: 2 mg Sodium Chloride (Nacl 0.9% 1000 Ml Iv Soln) 1,000 mls @ 200 mls/hr IV CONTINUOUS PRN PRN Reason: THIS MED IS NOT "PRN" Stop: 02/13/17 10:35 Last Admin: 01/14/17 11:13 Dose: 1,000 ml Piperacillin Sod/Tazobactam (Sod 3.375 gm/ Sodium Chloride) 100 mls @ 200 mls/ hr IV Q6 LALITHA Stop: 01/21/17 11:59 Last Admin: 01/14/17 12:22 Dose: 3.375 gm Insulin Human Regular (Humulin R (Pyxis) Insulin 100 Unit/Ml 3ml) 0 - 12 unit SUBCUT Q6HP PRN PRN Reason: Protocol Stop: 02/11/17 06:58 Ketorolac Tromethamine (Toradol Inj/Pf 30 Mg/1 Ml Sdv) 15 mg IV Q6HP PRN PRN Reason: inflammation/pain Stop: 01/19/17 10:53 Last Admin: 01/14/17 11:09 Dose: 15 mg Umeqs-9-Onnb Ethyl Esters (Lovaza 1 Gm Capsule) 2 gm PO BID [facility] Stop: 02/12/17 09:59 Last Admin: 01/14/17 13:25 Dose: Not Given Ondansetron HCl (Zofran Inj/Pf 4 Mg/2 Ml Sdv) 4 mg IV Q4HP PRN PRN Reason: nausea/vomiting Stop: 02/11/17 06:56 Last Admin: 01/14/17 02:19 Dose: 4 mg Oxycodone HCl (Oxy-Ir 5 Mg Tablet) 5 mg PO Q4HP PRN Stop: 01/21/17 10:58 Pregabalin (Lyrica 50 Mg Capsule) 100 mg PO QHS LALITHA Stop: 02/12/17 21:59 Last Admin: 01/13/17 22:43 Dose: 100 mg Pregabalin (Lyrica 50 Mg Capsule) 50 mg PO DAILYP PRN PRN Reason: FOR PAIN Stop: 02/12/17 09:17 Sodium Chloride (Saline Flush 2.5 Ml Monoject Prefil Syrin) 2.5 ml IV Q8 LALITHA Stop: 02/12/17 21:59 Last Admin: 01/14/17 13:25 Dose: Not Given Tramadol HCl (Ultram 50 Mg Tablet) 50 mg PO Q12HP PRN PRN Reason: FOR PAIN Stop: 01/20/17 09:17 Zolpidem Tartrate (Ambien 5 Mg Tablet) 10 mg PO QHS LALITHA Stop: 02/12/17 21:59 Last Admin: 01/13/17 22:43 Dose: 10 mg - Allergies Allergies/Adverse Reactions: No Known Allergies Allergy (Unverified 01/11/17 23:15) Hospital Course Hospital Course: Patient is a 61 year old status post gastric bypass in 2006 and right hemicolectomy in 2014 Presented to our emergency room on 01/12/2017 with severe epigastric right upper quadrant pain Patient was admitted under surgical service with a presumptive diagnosis of acute cholecystitis On admission he had a normal white count and abnormal liver function tests. 01/11/17 01/11/17 23:41 23:41 WBC 7.2 Hgb 16.2 Hct 47.9 Total Bilirubin 2.8 H Direct Bilirubin 0.6 H AST 747 H ALT 825 H Alkaline Phosphatase 195 H Lipase 311.6 H Abdominal ultrasound was normal MRCP was most consistent with acute cholecystitis Hida Scan was unremarkable CT abdomen and pelvis showed fatty liver Patient was initially treated with Unasyn Today the patient started having a fever with chills Fever was 102 He looked ill ; his white blood count was normal at 8.5 But his lactic acid was elevated at 2.4 LFTs remained elevated with increased bilirubin Blood cultures were performed Patient was started on Zosyn 3.375 g every 6 hours And 1 dose of vancomycin 1 g was given Patient was given a liter of normal saline IV bolus and drip was initiated at 200 mL/h He remained stable; fever decreased to 99 01/13/17 01/14/17 05:53 09:56 WBC 8.5 Hgb 14.1 Hct 43.0 Total Bilirubin 5.2 H Direct Bilirubin 2.4 H Alkaline Phosphatase 167 H GI consult was obtained Dr. Potts felt that patient likely had choledocholithiasis and cholangitis And should be transferred to tertiary center for ERCP and or cholecystectomy Physical Exam Vital Signs: Temp Pulse Resp BP Pulse Ox 99 F 86 18 136/64 H 96 01/14/17 12:00 01/14/17 12:00 01/14/17 12:00 01/14/17 12:00 01/14/17 12:00 Intake & Output 01/13/17 01/14/17 01/15/17 00:59 00:59 00:59 Intake Total 467 2387 430 Output Total 775 Balance 467 2387 -345 Weight 105.6 kg 105.6 kg General appearance: PRESENT: mild distress, other - Looks pale and ill Eye exam: PRESENT: conjunctiva pale, scleral icterus Neck exam: ABSENT: carotid bruit, JVD, lymphadenopathy, thyromegaly Respiratory exam: PRESENT: clear to auscultation pedro. ABSENT: rales, rhonchi, wheezes Cardiovascular exam: PRESENT: RRR. ABSENT: diastolic murmur, rubs, systolic murmur GI/Abdominal exam: PRESENT: normal bowel sounds, soft, tenderness - Epigastrium and right upper quadrant. ABSENT: distended, guarding, mass, organolmegaly, rebound Neurological exam: PRESENT: alert, awake, oriented to person, oriented to place , oriented to time, oriented to situation, CN II-XII grossly intact. ABSENT: motor sensory deficit Psychiatric exam: PRESENT: appropriate affect, normal mood. ABSENT: homicidal ideation, suicidal ideation Results Laboratory Results: 01/14/17 09:56 01/14/17 06:10 01/14/17 01/14/17 06:10 09:56 WBC 8.5 RBC 5.08 Hgb 14.1 Hct 43.0 MCV 85 MCH 27.8 MCHC 32.9 RDW 14.3 H Plt Count 183 Seg Neutrophils % 82.3 H Lymphocytes % 7.7 L Monocytes % 9.3 Eosinophils % 0.4 Basophils % 0.3 Absolute Neutrophils 7.0 Absolute Lymphocytes 0.6 Absolute Monocytes 0.8 Absolute Eosinophils 0.0 Absolute Basophils 0.0 Sodium 140.1 Potassium 5.0 Chloride 104 Carbon Dioxide 21 L Anion Gap 15 BUN 14 Creatinine 0.91 Est GFR ( Amer) > 60 Est GFR (Non-Af Amer) > 60 Glucose 154 H Calcium 9.2 Total Bilirubin 4.9 H AST 255 H ALT 479 H Alkaline Phosphatase 181 H Total Protein 6.4 Albumin 3.6 Lipase 182.1 01/14/17 09:56 01/14/17 06:10 MCV 85 fl (80-97) 01/14/17 09:56 MCH 27.8 pg (27.0-33.4) 01/14/17 09:56 MCHC 32.9 g/dL (32.0-36.0) 01/14/17 09:56 RDW 14.3 % (11.5-14.0) H 01/14/17 09:56 Seg Neutrophils % 82.3 % (42-78) H 01/14/17 09:56 Lymphocytes % 7.7 % (13-45) L 01/14/17 09:56 Monocytes % 9.3 % (3-13) 01/14/17 09:56 Eosinophils % 0.4 % (0-6) 01/14/17 09:56 Basophils % 0.3 % (0-2) 01/14/17 09:56 Absolute Neutrophils 7.0 10^3/uL (1.7-8.2) 01/14/17 09:56 Absolute Lymphocytes 0.6 10^3/uL (0.5-4.7) 01/14/17 09:56 Absolute Monocytes 0.8 10^3/uL (0.1-1.4) 01/14/17 09:56 Absolute Eosinophils 0.0 10^3/uL (0.0-0.6) 01/14/17 09:56 Absolute Basophils 0.0 10^3/uL (0.0-0.2) 01/14/17 09:56 Chloride 104 mmol/L (98-107) 01/14/17 06:10 Carbon Dioxide 21 mmol/L (22-30) L 01/14/17 06:10 Anion Gap 15 (5-19) 01/14/17 06:10 Est GFR ( Amer) > 60 (>60) 01/14/17 06:10 Est GFR (Non-Af Amer) > 60 (>60) 01/14/17 06:10 Glucose 154 mg/dL (75-110) H 01/14/17 06:10 Calcium 9.2 mg/dL (8.4-10.2) 01/14/17 06:10 Total Bilirubin 4.9 mg/dL (0.2-1.3) H 01/14/17 06:10 AST 255 U/L (17-59) H 01/14/17 06:10 ALT 479 U/L (21-72) H 01/14/17 06:10 Alkaline Phosphatase 181 U/L (38-126) H 01/14/17 06:10 Total Protein 6.4 g/dL (6.3-8.2) 01/14/17 06:10 Albumin 3.6 g/dL (3.5-5.0) 01/14/17 06:10 Amylase 69 U/L (30-110) 01/13/17 05:53 Lipase 182.1 U/L (23-300) 01/14/17 06:10 Urine Color YELLOW 01/12/17 01:50 Urine Appearance CLEAR 01/12/17 01:50 Urine pH 5.0 (5.0-9.0) 01/12/17 01:50 Ur Specific Sherman 1.024 01/12/17 01:50 Urine Protein NEGATIVE mg/dL (NEGATIVE) 01/12/17 01:50 Urine Glucose (UA) >=500 mg/dL (NEGATIVE) H 01/12/17 01:50 Urine Ketones TRACE mg/dL (NEGATIVE) H 01/12/17 01:50 Urine Blood NEGATIVE (NEGATIVE) 01/12/17 01:50 Urine Nitrite NEGATIVE (NEGATIVE) 01/12/17 01:50 Ur Leukocyte Esterase NEGATIVE (NEGATIVE) 01/12/17 01:50 Urine WBC (Auto) 0 /HPF 01/12/17 01:50 Urine RBC (Auto) 0 /HPF 01/12/17 01:50 01/11/17 01/11/17 23:41 23:41 Creatine Kinase 96 CK-MB (CK-2) 0.72 Troponin I < 0.012 EKG Comments: SINUS RHYTHM [AMI4] . ABNRM R PROG, CONSIDER ASMI OR LEAD PLACEMENT Impressions: Acute Abdomen Series 01/11/17 23:35 IMPRESSION: NO RADIOGRAPHIC EVIDENCE FOR ACUTE ABDOMINAL DISEASE. Abdomen MRI 01/12/17 00:00 IMPRESSION: 1. APPARENT EDEMA OF THE GALLBLADDER WALL WITH PERICHOLECYSTIC FLUID. FINDINGS COULD BE INDICATIVE OF ACALCULOUS CHOLECYSTITIS. IF THERE IS CLINICAL SUSPICION , THEN HEPATOBILIARY SCAN MAY BE INDICATED. 2. UNREMARKABLE MRCP. NO BILIARY DILATION OR INTRALUMINAL FILLING DEFECTS. Abdomen Ultrasound 01/12/17 00:52 IMPRESSION: No acute findings. Limitation. Abdomen/Pelvis CT 01/12/17 07:00 IMPRESSION: Markedly decreased density of the liver from fatty infiltration Intact gastric bypass Small fat containing umbilical and bilateral inguinal hernias Hepatobiliary Scan Nuclear Medicine 01/13/17 00:00 IMPRESSION: LOW GALLBLADDER EJECTION FRACTION. EVIDENCE FOR BILIARY DYSKINESIS. NO CYSTIC OR COMMON DUCT OBSTRUCTION. Plan Discharge Plan: Patient to be transferred to higher level of care for evaluation and treatment
[2017-01-14 20:49] VITALS: BP 136/66
[2017-01-14] MEDS: PREGABALIN 50 MG CAPSULE PO SCH (22:03)
[2017-01-14] MEDS: ZOLPIDEM TARTRATE 5 MG TABLET PO SCH (22:03)
== END 2017-01-14 22:00 | disposition short-term general hospital (02) | DRG 444 ==
LOC: ER 23:11 → EH 01-12 06:55 → 5 01-12 10:08
PROVIDERS: ADMIT Surgery; ATTEND Surgery
DX: K81.0 Acute cholecystitis (principal); A41.9 Sepsis, unspecified organism; K83.9 Disease of biliary tract, unspecified; R10.9 Unspecified abdominal pain; E78.5 Hyperlipidemia, unspecified; E11.9 Type 2 diabetes mellitus without complications; I10 Essential (primary) hypertension; K76.0 Fatty (change of) liver, not elsewhere classified; R74.8 Abnormal levels of other serum enzymes; Z98.84 Bariatric surgery status; Z90.49 Acquired absence of other specified parts of digestive tract; Z79.82 Long term (current) use of aspirin; Z79.84 Long term (current) use of oral hypoglycemic drugs
CPT/HCPCS: 36415; 74022; 74177; 74181; 76705; 78227; 80053; 80074; 80307; 81001; 82150; 82550; 82553; 82962; 83690; 84484; 85025; 85610; 85730; 87040; 93005; 93010; 96361; 96365; 96375; 96376; 99285; A9537; J0295; J1170; J1885; J2270; J2405; J2543; J2805; J3010; J3370; J3490; J7030; J7060; Q9969

== ENCOUNTER 2018-04-02 03:36 | Emergency (ER) | payer BC ==
[2018-04-02 03:42] VITALS: BP 131/80
[2018-04-02] MEDS ORDERED: CEPHALEXIN 500 MG CAPSULE PO ONE (04:23)
--- NOTE | 2018-04-02 04:28 | ER Document Report ---
HPI - HPI Pain Level: 2 Notes: Patient is a 62-year-old diabetic male who presents to the ED complaining of bleeding to his right plantar foot after patient tried to remove the callus from the area with a knife. Patient states that he must to one a little too deep. Patient's became concerned when they had trouble stopping the bleeding. He is not on any blood thinners. Patient states that he does have peripheral neuropathy, but does have sensation in that area. Patient states that he otherwise does not have any significant pain. He has no other concerns or complaints at this time. Denies any drug allergies. His last tetanus was a year ago. Denies any headache, fever, URI, sore throat, chest pain, palpitations, syncope, cough, shortness of breath, wheeze, dyspnea, abdominal pain, nausea/vomiting/diarrhea, urinary retention, dysuria, hematuria, loss of control of bowel or bladder, muscle paralysis/weakness, or rash. - ROS Systems Reviewed and Negative: Yes All other systems reviewed and negative Past Medical History - Social History Smoking Status: Never Smoker Family History: Reviewed & Not Pertinent - Past Medical History Cardiac Medical History: Reports: Hx Hypercholesterolemia Endocrine Medical History: Reports: Hx Diabetes Mellitus Type 2 Renal/ Medical History: Denies: Hx Peritoneal Dialysis Past Surgical History: Reports: Hx Appendectomy, Hx Bowel Surgery - Debra-en-[facility], partial colectomy, Hx Gastric Bypass Surgery - Debra-en-Y, January 05, 2007, [place], [place] with successful weight loss., Other - 1. 1. Orthopedic repair left foot 1976 2. Fractures repaired with joy - Immunizations Immunizations up to date: Yes Hx Diphtheria, Pertussis, Tetanus Vaccination: Yes Hx Pneumococcal Vaccination: 01/30/15 Vertical Provider Document - CONSTITUTIONAL Agree With Documented VS: Yes Notes: PHYSICAL EXAMINATION: GENERAL: Well-appearing, well-nourished and in no acute distress. HEAD: Atraumatic, normocephalic. EYES: Pupils equal round and reactive to light, extraocular movements intact, sclera anicteric, conjunctiva are normal. Musculoskeletal: Rt foot/toes: FROM to passive/active. Strength 5+/5. N/V intact distal. No bony tenderness. Extremities: No cyanosis, clubbing, or edema b/l. Peripheral pulses 2+. Capillary refill less than 3 seconds. NEUROLOGICAL: Cranial nerves grossly intact. Normal speech, normal gait. Normal sensory, motor exams PSYCH: Normal mood, normal affect. SKIN: Rt foot (plantar near 2nd-3rd metatarsal area): There is a [id number] avulsion laceration where patient cut off the reported callous. No active bleeding when home-made dressing removed. - INFECTION CONTROL TRAVEL OUTSIDE OF THE [place] IN LAST 30 DAYS: No Course - Re-evaluation Re-evalutation: 04/02/18 04:59 Patient is an afebrile, well-hydrated, 62-year-old male who presents to the ED with a laceration/avulsion to the skin of his plantar foot on the right side. Vitals are acceptable. PE is otherwise unremarkable. No labs or imaging warranted at this time based on H&P. Wound was thoroughly irrigated and cleansed. Tetanus is reported to be up-to-date. Bleeding was adequately controlled without any difficulties. Pt's wound did not bleeding even with the cleansing procedure. Patient is a diabetic so I will be sending him home with prophylactic antibiotic. First dose of Keflex was given p.o. today. Prescription of Keflex to be sent home. Conservative measures otherwise for symptoms. Advised patient that he should be seen by a casing machine operator for his foot care and he should not try to perform his own home procedures. Recheck with your PCM in 3-5 days as well. Return to the ED with any worsening/concerning symptoms otherwise as reviewed discharge. Patient is in agreement. - Vital Signs Vital signs: Temp Pulse Resp BP Pulse Ox 98.9 F 96 18 131/80 H 93 04/02/18 03:40 04/02/18 03:40 04/02/18 03:40 04/02/18 03:40 04/02/18 03:40 Discharge - Discharge Clinical Impression: Laceration of foot Qualifiers: Encounter type: initial encounter Laterality: right Qualified Code(s): S91.311A - Laceration without foreign body, right foot, initial encounter Condition: Stable Disposition: HOME, SELF-CARE Instructions: Antibiotic Ointment Protection ([facility]), Prophylactic Antibiotic ( [facility]), Soap Cleansing ([facility]) Additional Instructions: Keep the skin clean Wash with soap and water Tylenol/ibuprofen if needed Triple antibiotic ointment daily Take medication as directed Monitor for any worsening symptoms Recheck with your PCM in 3-5 days Consider consult with Podiatry for ongoing/worsening symptoms Return to the ED with any worsening symptoms and/or development of fever, headache, chest pain, palpitations, syncope, shortness of breath, trouble breathing, abdominal pain, n/v/d, abscess, purulent discharge, red streaks, worsening swelling, or other worsening symptoms that are concerning to you. Prescriptions: Cephalexin Monohydrate [Keflex 500 mg Capsule] 500 mg PO BID #20 capsule Forms: Elevated Blood Pressure Referrals: MARKO LAUREN MD [Primary Care Provider] - Follow up in 3-5 days JACQUIE VAZQUEZ DPM [ACTIVE STAFF] - Follow up as needed
== END 2018-04-02 05:15 | disposition home or self-care (01) ==
LOC: ER 03:36
DX: S91.311A Laceration without foreign body, right foot, initial encounter (principal); W26.0XXA Contact with knife, initial encounter; Y93.89 Activity, other specified; E11.40 Type 2 diabetes mellitus with diabetic neuropathy, unspecified
CPT/HCPCS: 99283